=== PATIENT | female | born 1955 | race American Indian/Alaskan Native ===

== ENCOUNTER 2017-09-06 07:49 | Outpatient (CLI) | payer MEDICARE ==
--- NOTE | 2017-09-10 15:42 | Vascular Lab Report ---
LOWER EXTREMITY ARTERIAL DUPLEX: REASON FOR EXAM: Peripheral arterial disease. COMMENTS ON THE RIGHT: Triphasic waveforms are seen proximally. Monophasic waveforms are seen distally. No flow noted in the proximal SFA.. Plaque noted in the SFA.. Findings are consistent with abnormal perfusion. Findings are inconsistent with the ability to heal distal wounds. COMMENTS ON THE LEFT: Triphasic waveforms are seen proximally. Biphasic waveforms are seen distally. No significant velocity gradients are identified. No focal significant plaque is identified. Findings are consistent with normal perfusion. Findings are consistent with the ability to heal distal wounds. IMPRESSION: RIGHT: Right SFA occlusion. LEFT:Essentially normal arterial flow.
== END 2017-09-06 07:50 | disposition home or self-care (01) ==
LOC: VAS 07:49
DX: I70.201 Unspecified atherosclerosis of native arteries of extremities, right leg (principal); M79.605 Pain in left leg
CPT/HCPCS: 93925

== ENCOUNTER 2018-02-05 10:45 | Outpatient (CLI) | payer MEDICARE ==
--- NOTE | 2018-02-05 14:50 | XRay Report ---
XRAY CHEST TWO VIEWS: 02/05/18 10:45:00 CLINICAL: Cough. COMPARISON: 01/17/11 FINDINGS: Normal heart and pulmonary vasculature. The lungs are normally expanded and clear. No airspace disease or pleural effusion. Extensive spondylosis of the thoracic spine. IMPRESSION: No acute cardiopulmonary process.Thoracic spondylosis.
== END 2018-02-05 10:46 | disposition home or self-care (01) ==
LOC: SPVIMAG 10:45
DX: R05 Cough (principal); M47.894 Other spondylosis, thoracic region
CPT/HCPCS: 71046

== ENCOUNTER 2019-03-23 11:46 | Outpatient (CLI) | payer MEDICARE ==
--- NOTE | 2019-03-23 12:43 | XRay Report ---
Chest 2 views: History: Cough. Findings: Normal cardiomediastinal silhouette. Trachea is midline. No consolidation, pneumothorax or pleural effusion. Impression: No acute cardiopulmonary findings
== END 2019-03-23 11:47 | disposition home or self-care (01) ==
LOC: XRAY 11:46
DX: R05 Cough (principal); J44.9 Chronic obstructive pulmonary disease, unspecified; I10 Essential (primary) hypertension; K21.9 Gastro-esophageal reflux disease without esophagitis; E11.9 Type 2 diabetes mellitus without complications; E66.9 Obesity, unspecified
CPT/HCPCS: 71046